=== PATIENT | male | born 1980 | race Caucasian/White ===

== ENCOUNTER 2020-03-08 14:22 | Outpatient (CLI) | payer MEDICAID ==
[2020-03-08] MEDS ORDERED: IOVERSOL 320 100 ML VIAL IVP ONE ×2 (14:33→17:24)
[2020-03-08] MEDS ORDERED: IOVERSOL 320 50 ML VIAL ONE (14:33)
[2020-03-08] MEDS ORDERED: IOVERSOL 320 50 ML VIAL PO ONE (17:24)
--- NOTE | 2020-03-08 17:37 | CT Report ---
PROCEDURE: Abdomen/Pelvis W INDICATIONS: TESTICULAR PAIN, INGUINAL HERNIA CONTRAST: IV CONTRAST: Optiray 320 ml: 100 PO CONTRAST: Optiray 320 ml50 TECHNIQUE: After the administration of 100 cc Optiray 320 IV contrast, 5 mm thick sections acquired from the sarah phragms to the symphysis. 5 mm thick coronal and sagittal reformats were acquired. For radiation do se reduction, the following was used: automated exposure control, adjustment of mA and/or kV accordi ng to patient size. COMPARISON: None. FINDINGS: Image quality: Excellent. ABDOMEN: Lung bases: Lung bases are clear. Heart size is normal. Solid organs: Liver and spleen are normal in size and enhancement. Gallbladder is normal. Biliary system is non dilated. Pancreas enhances normally. No adrenal nodules. Kidneys demonstrate normal size and enhancement, without hydronephrosis. Peritoneum and bowel: Bowel loops demonstrate normal wall thickness and caliber. Normal appendix. N o free fluid or air. Nodes and vessels: No retroperitoneal or mesenteric adenopathy by size criteria. Aorta and inferior vena cava are normal in size. Miscellaneous: Tiny fat-containing umbilical hernia.. PELVIS: Genitourinary: Bladder wall thickness is normal. Normal size prostate gland. Miscellaneous: No inguinal hernias or adenopathy. Bones: No suspicious bony lesions. No vertebral body compression fractures. IMPRESSION: 1. No acute process. 2. No evidence of inguinal hernia. 3. Tiny fat-containing umbilical hernia. Reviewed by: Adia Osman MD on 03/08/2020 5:35 PM PDT Approved by: Adia Osman MD on 03/08/2020 5:35 PM PDT Station ID: [id number]
--- NOTE | 2020-03-09 09:30 | Ultrasound Report ---
PROCEDURE: Testicle INDICATIONS: TESTICULAR PAIN, INGUINAL HERNIA TECHNIQUE: Real-time scanning was performed of the scrotum and testicles, with image documentation. Color and p ulse Doppler interrogation was performed of both testicles. COMPARISON: None. FINDINGS: Right: Testicle is normal in size at 4.3 x 2.4 x 2.9 cm, and homogenous in echotexture. Epididymis is normal in overall size and morphology. A small hydrocele is present. No varicoceles. Overlying s crotal skin is normal in thickness. Left: Testicle is normal in size at 4.4 x 2.3 x 3 cm, and homogeneous in echotexture. Epididymis is normal in overall size and morphology. A small hydrocele is present. No varicoceles. Overlying scr otal skin is normal in thickness. Doppler: Color and pulse Doppler demonstrate normal and symmetric arterial flow in both testicles. IMPRESSION: No sonographic signs of testicular torsion or epididymitis. Reviewed by: Stas Edward MD on 03/09/2020 9:29 AM PDT Approved by: Stas Edward MD on 03/09/2020 9:29 AM PDT Station ID: [id number]
== END 2020-03-08 14:23 | disposition home or self-care (01) ==
LOC: DI 14:22
PROVIDERS: ATTEND Physician Assistant
DX: N50.819 Testicular pain, unspecified (principal); K42.9 Umbilical hernia without obstruction or gangrene
CPT/HCPCS: 74177; 76870; Q9967